=== PATIENT | male | born 1975 | race Two or more races ===

== ENCOUNTER → 2020-12-17 | Outpatient (CLI) | payer MEDICAID | LOC: RAD 17:19 | DX: M79.671 Pain in right foot (principal) | CPT/HCPCS: 73650 ==

== ENCOUNTER → 2021-10-19 | Outpatient (CLI) | payer OTHER ==
[~2021-10-19] MED LIST: ACYCLOVIR400 MG PO; PREDNISONE10 MG PO
== END ==
LOC: CT 08:37
DX: R51.9 Headache, unspecified (principal)
CPT/HCPCS: 70450